=== PATIENT | female | born 1935 | race Caucasian/White ===

== ENCOUNTER → 2019-06-16 | Outpatient (CLI) | payer OTHER ==
[~2019-06-16] VITALS: Ht 157.5 cm; Wt 59.0 kg
[~2019-06-16] MED LIST: AUGMENTIN 875875 MG PO; CALCIUM 600 +1 EAC1 PO; COLACE 100 MG100 MG PO; HYDROCODONE-AP1 EAC6 PO; LIPITOR 20 MG T20 M1 PO; MULTIVITAMINS1 EAC7 PO; NORVASC2.5 MG PO; NORVASC5 M1 PO; PRAVACHOL20 MG PO; SENNA8.6 MG PO; UNKN BP MED; UNKN CHOLESTEROL MED; XALATAN2.5 ML OPHTHALMIC; XANAX 0.25 MG0.25 MG PO
--- NOTE | 2019-06-19 12:48 | P ---
[facility] [address] [place] [address] PROCEDURE REPORT Name: CHRISS NOWAK Room #: REG [facility] Karla.#: [id number] Admission: 06/16/19 Attend Phys: Arnulfo Calderón Discharge: Date of : 39 Report #: [id number] THIS REPORT FOR: //name// CC: Arnulfo Buckner DATE OF SERVICE: 06/16/2019 PROCEDURE PERFORMED: Colonoscopy with biopsies. HISTORY OF PRESENT ILLNESS: The patient is an 84-year-old female with a history of colon cancer status post resection last year. Denies any symptoms. No family history of colon cancer, here for 1-year followup. DESCRIPTION OF PROCEDURE: The risks and benefits of the procedure were explained to the patient, those risks including but not limited to bleeding, perforation and the risk of sedation. She understood these risks and gave informed consent. Sedation was given using propofol per anesthesia. Next, a digital rectal exam was initially performed, which was normal. Next, using a standard Olympus colonoscope, the scope was placed in the patient's anus and advanced under direct vision to the right colon, at which point, the surgical anastomosis was noted. This was well healed and widely patent. The remaining transverse colon was normal. In the descending colon, a 4 mm sessile polyp was noted. This was removed with cold forceps, otherwise normal. A few small scattered diverticula were noted in the sigmoid colon, no evidence of inflammation, otherwise normal. The rectal mucosa was normal. On retroflexion, small nonbleeding internal hemorrhoids were noted. The scope was then withdrawn and the procedure terminated. The patient tolerated the procedure well. IMPRESSION: 1. Surgical anastomosis in the right colon. 2. Small colonic polyp. 3. Mild sigmoid diverticulosis. 4. Small internal hemorrhoids. 5. Otherwise, normal colonoscopy. RECOMMENDATIONS: 1. Await biopsy results. 2. Repeat colonoscopy in 2 years. [facility] [address] [place] [address] PROCEDURE REPORT Name: CHRISS NOWAK Room #: REG [facility].#: [id number] Admission: 06/16/19 Attend Phys: Arnulfo Calderón Discharge: Date of : 37 Report #: [id number] Thank you for allowing me to participate in her care. <ELECTRONICALLY SIGNED> By: Arnulfo Hirsch MD 06/19/19 1248 [id number] 0102 Arnulfo Hirsch MD /nt
--- NOTE | 2019-06-19 17:07 | PATH ---
[facility] [address] [place] [address] PATHOLOGY RPT PROCEDURE Name: KASSANDRA NOWAK Room #: REG [facility] M.R.#: [id number] Admission: 06/16/19 Date of : 39 Discharge: Report #: [id number] Path Case #: [id number] [facility] Accession Number: [id number] . 01 Material submitted: . colon - DESCENDING COLON POLYP. Modifiers: descending . 01 Clinical history: . History colon cancer Polyp . 02 Diagnosis: Polyp, descending colon polyp, endoscopic biopsy: - Hyperplastic polyp. - Negative for dysplasia. (IUV:luke; 06/19/2019) QMS 06/19/2019 1313 Local . 02 Electronically signed: . Edelmira Llanos MD, Pathologist NPI- [id number] . 01 Gross description: . The specimen is received in formalin, labeled "Kassandar Nowak, descending colon polyp" and consists of 3 fragments of pink-coyle tissue measuring between 0.2 x 0.2 cm and 0.3 x 0.2 cm which are entirely submitted in A1. (SDY; 06/16/2019) SYU/SYU 06/16/2019 1704 Local . 02 Pathologist provided ICD-10: K63.5 . 02 CPT . 173311 Specimen Comment: A courtesy copy of this report has been sent to Specimen Comment: [phone], . Specimen Comment: Report sent to / DR GARAY Performed at: [address], [place], [place] [id number] MD Logan Wright MD Phone: [phone] Performed at: [address] [id number] MD Edelmira Llanos MD Phone: [phone]
== END | disposition home or self-care (01) ==
LOC: GI 06:56
DX: Z08 Encounter for follow-up examination after completed treatment for malignant neoplasm (principal); Z85.038 Personal history of other malignant neoplasm of large intestine; K63.5 Polyp of colon; K57.30 Diverticulosis of large intestine without perforation or abscess without bleeding; K64.8 Other hemorrhoids; Z98.0 Intestinal bypass and anastomosis status; I10 Essential (primary) hypertension; E78.00 Pure hypercholesterolemia, unspecified; E78.5 Hyperlipidemia, unspecified; H40.9 Unspecified glaucoma; Z98.890 Other specified postprocedural states; Z90.49 Acquired absence of other specified parts of digestive tract; Z98.41 Cataract extraction status, right eye; Z98.42 Cataract extraction status, left eye; Z98.51 Tubal ligation status; Z85.828 Personal history of other malignant neoplasm of skin; Z85.118 Personal history of other malignant neoplasm of bronchus and lung; Z79.899 Other long term (current) drug therapy; Z87.19 Personal history of other diseases of the digestive system
CPT/HCPCS: 62110; 62900

== ENCOUNTER 2019-09-19 06:48 | Inpatient (IN) | payer OTHER ==
[2019-09-19] VITALS (7 sets, daily range): BP systolic 128–169; BP diastolic 53–87
[~2019-09-19] VITALS: Ht 157.5 cm; Wt 61.7 kg
[2019-09-19] MEDS ORDERED: PRAVACHOL 20 MG20 M1 PO (07:09)
[2019-09-19] MEDS ORDERED: LEXAPRO 10 MG T10 M1 PO (07:10)
[2019-09-19 07:21] LABS: HEMATOCRIT 38.7 % (37.0-47.0); HEMOGLOBIN 12.8 gm/dL (12.0-15.0); MCH 29.6 pg (26.0-34.0); MCV 89.9 fL (80.0-100.0); RBC 4.31 mil/uL (4.20-5.00); RDW 13.5 % (10.5-14.5); WBC 4.4 thou/uL (4.0-11.0)
[2019-09-19 07:25] LABS: ANION GAP 9 mmol/L (7-16); BUN 15 mg/dL (7-18); CALCIUM 9.8 mg/dL (8.5-10.1); CHLORIDE 104 mmol/L (98-107); CO2 30 mmol/L (21-32); CREATININE 0.8 mg/dL (0.6-1.0); GLUCOSE 103 mg/dL (74-106); POTASSIUM 3.8 mmol/L (3.5-5.1); SODIUM 143 mmol/L (136-145)
[2019-09-19 07:26] LABS: APTT 26.1 Seconds (24.5-32.8); PROTIME 10.7 Seconds (9.3-11.4)
[2019-09-19 07:33] LABS: TROPONIN-I <0.06 ng/mL (<0.06)
--- NOTE | 2019-09-19 08:25 | NUR ---
MRI FORM FAXED TO MRI AT THIS TIME.
--- NOTE | 2019-09-19 08:40 | EKG ---
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 : 1935 Requested By: Isaias Bullock Order Number: [id number] MD: Cheko Guthrie Measurements Intervals [place] Rate: 82 P: 48 [place]: 152 QRS: -16 QRSD: 119 T: 34 QT: 374 QTc: 437 Interpretive Statements Sinus rhythm Poor R wave progression Compared to ECG 04/24/2016 09:39:06 No significant change was found Electronically Signed On 09-19-2019 8:39:28 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
[2019-09-19 15:55] LABS: TSH 0.802 uIU/mL (0.358-3.740)
[2019-09-19 16:22] LABS: FOLIC ACID 38.7 ng/mL (8.6-58.9)
--- NOTE | 2019-09-19 17:23 | NUR ---
NEW PATIENT ARRIVED FOR WEAKNESS AND NUMBNESS ON RIGHT SIDE. ALERT X4, DENIES SOB, DENIES CHEST PAIN, HEADACHE PAIN MANAGED WITH MEDICATIONS, LUNGS CLEAR ON RA, CONTINENT OF BLADDDER , BM TODAY, ASSISTX1 WITH GAIT BELT AND WALKER. ARRIVED WITH HEPARIN DRIP 11.99U/KG/HR; 7.42ML/HR NEW APTT 39.9 1450; PER PROTOCOL INCREASE RATE 1.2ML/HR CURRENTLY 13.94U/KG/HR; 8.62ML/HR WITH RN VARIFICATION. ADMISSION ASSESMENT AND HISTORY COMPLETE. FALL PRECAUTION IN PLACE. CALLS FOR ASSSISTANCE. NEUROLOGY CONSULTED BEDSIDE. NEW APTT ORDER PLACED FOR 2314 TODAY. CONTINUE TO MONITOR
[2019-09-20 00:36] VITALS: BP 123/67
--- NOTE | 2019-09-20 05:20 | NUR ---
ASSUMED PT CARE AT 1900. PT IS ALERT AND ORIENTED. NO FAMILY AT BEDSIDE. PT VERBALIZES A HEADACHE. FALL PRECAUTION IN PLACE. ASSESSMENT COMPLETED AND DOCUMENTED. SCHEDULED MEDS ADMINISTERED TO PT. PT IS STABLE. TOLERTAED PO INTAKE. CONTINUE TO MONITOR PATIENT CLOSLEY. VITAL SIGNS STABLE. DENIES ANY FURTHER NEEDS AT THIS TIME.
[2019-09-20 05:29] VITALS: BP 129/77
[2019-09-20 08:07] VITALS: BP 124/69
--- NOTE | 2019-09-20 10:25 | 2DMMODE ---
[facility] [place] [facility] [place] [address] 2 D/M-MODE ECHOCARDIOGRAM Name: CHRISS NOWAK Room #: 213-P ADM IN M.R.#: [id number] Admission: 09/19/19 Attend Phys: Maksim Jones MD Discharge: Date of : 37 Report #: [id number] THIS REPORT FOR: //name// APPROVED REPORT Study performed: 09/20/2019 09:08:07 EXAM: Comprehensive 2D, Doppler, and color-flow Echocardiogram Patient Location: Bedside Room #: 213 Status: routine BSA: 1.62 HR: 87 bpm BP: 124/69 mmHg Rhythm: NSR/Irregular Other Information Study Quality: Good Indications CVA. HX: HTN, HLP Echo Enhancing Agent Indication: Rule out Shunt Agent(s) / Amount(s) Used: Agitated Saline 6 cc 2D Dimensions RVDd: 23.96 mm IVSd: 7.73 (7-11mm) LVOT Diam: 20.46 (18-24mm) LVDd: 35.38 mm PWd: 8.86 (7-11mm) Ascending Ao: 27.89 (22-36mm) LVDs: 20.48 (25-40mm) Aortic Root: 30.63 mm Volumes Left Atrial Volume (Systole) Single Plane 4CH: 32.03 mL Single Plane 2CH: 24.11 mL LA ESV Index: 20.00 mL/m2 Aortic Valve AoV Peak Jonathan.: 2.02 m/s AO Peak Gr.: 16.25 mmHg LVOT Max P.37 mmHg LVOT Max V: 1.16 m/s ANTONY Vmax: 1.89 cm2 [facility] [place] [facility] [address] [place] [address] 2 D/M-MODE ECHOCARDIOGRAM Name: CHRISS NOWAK Room #: 213-[facility] IN ..#: [id number] Admission: 09/19/19 Attend Phys: Maksim Jones MD Discharge: Date of : 39 Report #: [id number] Mitral Valve E/A Ratio: 0.7 MV Decel. Time: 158.38 ms MV E Max Jonathan.: 0.78 m/s MV A Jonathan.: 1.18 m/s MV PHT: 45.93 ms IVRT: 76.12 ms Pulmonary Valve PV Peak Jonathan.: 1.14 m/s PV Peak Gr.: 5.24 mmHg Pulmonary Vein P Vein S: 0.92 m/s P Vein A: 0.43 m/s P Vein D: 0.46 m/s P Vein A Dur.: 86.5 msec P Vein S/D Ratio: 2.00 Tricuspid Valve TR Peak Jonathan.: 2.58 m/s RAP Estimate: 5.00 mmHg TR Peak Gr.: 27.00 mmHg PA Pressure: 32.00 mmHg Left Ventricle The left ventricle is normal size. There is normal LV segmental wall motion. Mild basal septal hypertrophy is present. Left ventricular systolic function is normal. LVEF is 60-65%. Mild diastolic dysfunction is present (impaired relaxation pattern). Right Ventricle The right ventricle is normal size. The right ventricular systolic function is normal. Atria The left atrium size is normal. No shunting by contast bubble injection. The right atrium size is normal. Aortic Valve The aortic valve is normal in structure. Leaflets are mildly calcifed. Mild aortic regurgitation. There is no aortic valvular stenosis. Mitral Valve The mitral valve is normal in structure. Trace to mild mitral regurgitation. Tricuspid Valve The tricuspid valve is normal in structure. Mild tricuspid [facility] [place] [facility] [address] [place] [address] 2 D/M-MODE ECHOCARDIOGRAM Name: CHRISS NOWAK BULMARO Room #: 213-[facility] IN M.R.#: [id number] Admission: 09/19/19 Attend Phys: Maksim Jones MD Discharge: Date of : 37 Report #: [id number] regurgitation. Estimated PAP is 30-35mmHg. Pulmonic Valve The pulmonary valve is normal in structure. Trace pulmonic regurgitation. Great Vessels The aortic root is normal in size. The ascending aorta is normal in size. IVC is normal in size and collapses >50% with inspiration. Pericardium There is no pericardial effusion. <Conclusion> The left ventricle is normal size. LVEF is 60-65%. The aortic valve is normal in structure. Leaflets are mildly calcifed. Mild aortic regurgitation. The mitral valve is normal in structure. Trace to mild mitral regurgitation. The tricuspid valve is normal in structure. Mild tricuspid regurgitation. Estimated PAP is 30-35mmHg. The pulmonary valve is normal in structure. Trace pulmonic regurgitation. There is no pericardial effusion. No shunting by contast bubble injection. <ELECTRONICALLY SIGNED> By: Jeremy Guerra MD 09/20/19 1024 1024 1024 Jeremy Guerra MD /INF
[2019-09-20 11:09] VITALS: BP 134/67
--- NOTE | 2019-09-20 15:33 | NUR ---
Met with patient who is A/Ox4. She has her s/o Chris at bedside. 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 She walks often with Chris and cont to drive. She reports discussion with phys of possible dc home in am. PT recommends possible HH or outpatient therapy. Also recommends walker for home. Initaited retrival of walker with [facility]. [email or web address] following for dc planning.
[2019-09-20 16:23] VITALS: BP 137/74
--- NOTE | 2019-09-20 17:00 | NUR ---
FAXED REFERRAL TO [facility] FOR A FWW RECEIVED CONFIRMATION AND WILL F/U WITH THEM IN THE AM.
--- NOTE | 2019-09-20 18:03 | NUR ---
RECEIVED PT'S CARE AROUND 0710; PT. ON BED; AOX4; C/O HEADACHE; PRN PAIN MEDICATION GIVEN EARLY ON THE MORNING; DURING ASSESSMENT HEPARIN ADJUSTED; CHECK CHARTING; AM MEDICATIONS GIVEN; NEURO ASSESSMENT PERFORMED; CHECK CHARTING; PER PHYSICAL T. PT'S C/O PAIN OVER R. SIDE CALF WHEN AMBULATING; PHYSICIAN NOTIFIED; ORDERS RECEIVED; DURING AFTERNOON ORDERS TO D/C HEPARING; D/C IT; ASSESSMENT CHARGED; FOLLOWING POC; WILL PASS ON REPORT;
[2019-09-20 19:38] VITALS: BP 111/64
[2019-09-21 03:52] VITALS: BP 115/50
--- NOTE | 2019-09-21 04:59 | NUR ---
ASSUMED PT CARE AT 1900. PT IS ALERT AND ORIENTED WITH NO SIGN OF DISTRESS NOTED IN PT. DENIES ANY PAIN. FALL PRECAUTION IN PLACE. ASSESSMENT COMPLETED AND DOCUMENTED. SCHEDULED MEDS AMDINISTERED TO PT. DENIES ANY FURTHER NEEDS AT THIS TIME.
[2019-09-21 08:00] VITALS: BP 155/68
[2019-09-21 10:16] VITALS: BP 155/68
--- NOTE | 2019-09-21 10:18 | NUR ---
PATIENT WITH PLAN DC HOME WITH HH TODAY. SHE PREFERS [facility]. DC LOGISTICS TECH FOR FAX REFERRAL FOR REVIEW.
[2019-09-21] MEDS ORDERED: CLOPIDOGREL75 MG PO (12:39)
[2019-09-21] MEDS ORDERED: ACETAMINOPHEN325 M1 PO (12:39)
[2019-09-21] MEDS ORDERED: B-12500 MCG PO (12:39)
[2019-09-21] MEDS ORDERED: ASPIR-LOW81 MG PO (12:39)
[2019-09-21] MEDS ORDERED: PROTONIX 20 MG20 MG PO (12:39)
[2019-09-21 13:03] VITALS: BP 155/68
[2019-09-21 13:16] VITALS: BP 155/68
--- NOTE | 2019-09-21 13:33 | NUR ---
FAXED REFERRAL TO [facility] SPOKE WITH CLAUDIA IN INTAKE SHE RECEIVED REFERRAL AND CAN ACCEPT. FAXED DC ORDERS/SUMMARY TO [facility] RECEIVED CONFIRMATION AND NICOLE DELIVERED FWW TO PT IN . [facility] WILL NOTIFY PT TIME OF VISITS.
--- NOTE | 2019-09-21 14:22 | NUR ---
ASSUMED CARE PT SHIFT CHANGE. ASSESSMENTS CHARTED. MEDS GIVEN PER NOV. PT ALERT AND ORIENTED. VSS. DENIES PAIN. DENIES SOB. O2 SATS WNL ON ROOM AIR. PT UP WITH WALKER TOLERATING WELL. PT WORKED WITH PHYS THERAPY THIS SHIFT TOLERATING VERY WELL. DC ORDERS ACKNOWLEDGED AND IMPLEMENTED. DC PAPERWORK DISCUSSED WITH PT, COMMUNICATES UNDERSTANDING. PT TO GO HOME WITH HOME HEALTH. PT AWARE AND UNDERSTANDING. PT LEFT UNIT AT APPROX 1415 BY TRANSPORT ACCOMPANIED BY S/O. IV'S REMOVED. TELE REMOVED. PT LEFT UNIT WITH ALL BELONGINGS.
== END 2019-09-21 14:06 | disposition home health service (06) | DRG 65 ==
LOC: ER 06:48 → EROBS 07:55 → 2N 07:55 → ENTRNSPT 09-21 13:53 → EDTRNSPTSTS 09-21 14:04 → 2N 09-21 14:06
PROVIDERS: Emergency Medicine; Psychiatry & Neurology Neurology; ADMIT Internal Medicine
DX: I63.532 Cerebral infarction due to unspecified occlusion or stenosis of left posterior cerebral artery (principal); C34.90 Malignant neoplasm of unspecified part of unspecified bronchus or lung; D68.59 Other primary thrombophilia; G81.91 Hemiplegia, unspecified affecting right dominant side; I10 Essential (primary) hypertension; F41.1 Generalized anxiety disorder; M81.0 Age-related osteoporosis without current pathological fracture; E53.8 Deficiency of other specified B group vitamins; F32.9 Major depressive disorder, single episode, unspecified; G47.00 Insomnia, unspecified; I67.9 Cerebrovascular disease, unspecified; S80.12XA Contusion of left lower leg, initial encounter; E78.5 Hyperlipidemia, unspecified; Z90.49 Acquired absence of other specified parts of digestive tract; Z98.42 Cataract extraction status, left eye; Z72.89 Other problems related to lifestyle; Z98.41 Cataract extraction status, right eye; Z85.038 Personal history of other malignant neoplasm of large intestine; Z85.118 Personal history of other malignant neoplasm of bronchus and lung; X58.XXXA Exposure to other specified factors, initial encounter; Y93.89 Activity, other specified; Y92.89 Other specified places as the place of occurrence of the external cause; Y99.8 Other external cause status
CPT/HCPCS: 10081

== ENCOUNTER → 2021-07-07 | Outpatient (CLI) | payer OTHER ==
[~2021-07-07] MED LIST changes: +ACETAMINOPHEN325 M1 PO; +ASA81BEC PO; +ASPIR-LOW81 MG PO; +B-12500 MCG PO; +CLOPIDOGREL75 MG PO; +LEXAPRO 10 MG T10 M1 PO; +MULTI VITAMIN1 EACH PO; +PLAVIX 75 MG TA75 MG PO; +PRAVACHOL 20 MG20 M1 PO; +PROTONIX 20 MG20 MG PO
== END ==
LOC: LAB 06:34
PROVIDERS: ATTEND Student in an Organized Health Care Education/Training Program
DX: Z01.812 Encounter for preprocedural laboratory examination (principal); Z20.822 Contact with and (suspected) exposure to COVID-19

== ENCOUNTER → 2021-07-09 | Outpatient (CLI) | payer OTHER ==
[~2021-07-09] VITALS: Ht 157.5 cm; Wt 61.2 kg
--- NOTE | 2021-07-10 13:46 | P ---
[facility] [address] [place] [address] PROCEDURE REPORT Name: CHRISS NOWAK Room #: REG Robel Santos#: [id number] Admission: 07/09/21 Attend Phys: Arnulfo Calderón Discharge: Date of : 39 Report #: [id number] THIS REPORT FOR: cc: Rudy Buckner MD,Arnulfo Mccarthy MD, MD ~ cc: Rudy Buckner MD DATE OF SERVICE: 07/09/2021 PROCEDURE PERFORMED: Colonoscopy. HISTORY OF PRESENT ILLNESS: The patient is an 86-year-old female with a history of colon cancer in 2018, status post right hemicolectomy. She denies any symptoms at this time. Last colonoscopy was in 2019, two years ago. A small polyp was removed at that time. Plan is for repeat colonoscopy. DESCRIPTION OF PROCEDURE: The risks and benefits of the procedure were explained to the patient, those risks including but not limited to bleeding, perforation and the risk of sedation. She understood these risks and gave informed consent. Sedation was given using propofol per anesthesia. Next, a digital rectal exam was initially performed, which was normal. Next, using a standard Olympus colonoscope, the scope was placed in the patient's anus and advanced under direct vision to the right colon, at which point, the surgical anastomosis was noted. This was well healed and widely patent. The scope was then slowly withdrawn. The remaining transverse colon was normal. A few diverticula were noted in the descending and sigmoid colon. No evidence of inflammation. The rectal mucosa was normal. On retroflexion, no abnormalities were noted. The scope was then withdrawn and the procedure terminated. The patient tolerated the procedure well. IMPRESSION: 1. Surgical changes consistent with right hemicolectomy. 2. Left-sided diverticulosis. 3. Otherwise, normal colonoscopy. RECOMMENDATIONS: Observe at this point due to the patient's age. Thank you for allowing me to participate in her care. <ELECTRONICALLY SIGNED> By: Arnulfo Hirsch MD 07/10/21 1346 0748 0905 Arnulfo Hrisch MD /nt
== END | disposition home or self-care (01) ==
LOC: GI 06:51
PROVIDERS: ATTEND Specialist
DX: Z12.11 Encounter for screening for malignant neoplasm of colon (principal); Z85.038 Personal history of other malignant neoplasm of large intestine; Z86.010 Personal history of colon polyps; K57.30 Diverticulosis of large intestine without perforation or abscess without bleeding; I10 Essential (primary) hypertension; E78.00 Pure hypercholesterolemia, unspecified; Z98.890 Other specified postprocedural states; Z79.899 Other long term (current) drug therapy; Z90.49 Acquired absence of other specified parts of digestive tract; Z86.73 Personal history of transient ischemic attack (TIA), and cerebral infarction without residual deficits; Z85.118 Personal history of other malignant neoplasm of bronchus and lung
CPT/HCPCS: 62110; 62900